=== PATIENT | male | born 1980 | race Caucasian/White ===

== ENCOUNTER 2016-09-19 21:37 | Emergency (ER) | payer OTHER ==
[~2016-09-19] VITALS: Ht 160 cm; Wt 55.0 kg
[2016-09-19 21:50] VITALS: TEMP 36.5; Ht 160 cm; Wt 55.0 kg
[2016-09-19 21:57] VITALS: O2SAT 97
[2016-09-19] MEDS ORDERED: SODIUM CHLORIDE 0.9% 1000ML 1,000 ML IV STA ×2 (22:14)
[2016-09-19] MEDS ORDERED: MULTI-VITAMIN INFUSION INJ 10 ML, THIAMINE HCL INJ 100 MG, FoLIC ACID INJ 1 MG in SODIU... IV ONE (22:15)
[2016-09-19] MEDS ORDERED: OPTIRAY 320 IV PRN (22:30)
--- NOTE | 2016-09-19 22:43 | DIAGNOSTIC IMAGING REPORT ---
CHEST ONE VIEW PORTABLE CLINICAL HISTORY: CHEST PAIN dyspnea COMPARISON STUDY: 01/22/2016 FINDINGS: The bones soft tissues and hemidiaphragms are normal. The cardiomediastinal silhouette is normal. The lungs are clear. The pulmonary vasculature is normal. IMPRESSION: Negative chest. Electronically signed by: Jacinto Willard M.D. 09/19/2016 10:42 PM Dictated Date/Time: 09/19/2016 10:42 PM
[2016-09-19 23:01] LABS: ALT/SGPT 73 U/L (12-78); BLOOD UREA NITROGEN 5 mg/dl (7-18); BUN/CREATININE RATIO 7.5 (10-20); CALCIUM 8.2 mg/dl (8.5-10.1); CARBON DIOXIDE 21 mmol/L (21-32); CHLORIDE 113 mmol/L (98-107); CREATININE 0.69 mg/dl (0.60-1.40); GLUCOSE 107 mg/dl (70-99); MAGNESIUM 2.4 mg/dl (1.8-2.4); POTASSIUM 3.6 mmol/L (3.5-5.1); SODIUM 148 mmol/L (136-145)
[2016-09-19 23:03] LABS: ISTAT CREATININE 0.9 mg/dl (0.6-1.3); ISTAT HEMOGLOBIN 16.3 g/dl (14.0-18.0); ISTAT IONIZED CALCIUM 1.04 mmol/l (1.12-1.32)
[2016-09-19 23:10] LABS: ALKALINE PHOSPHATASE 84 U/L (45-117); AST/SGOT 51 U/L (15-37); CKMB/CK RATIO 0.5 (0-3.0)
[2016-09-19 23:13] LABS: HEMATOCRIT 44.4 % (42-52); MEAN CELL VOLUME 93.3 fL (80-100); MEAN CORPUSCULAR HGB CONC 36.5 g/dl (32-36); MEAN PLATELET VOLUME 9.6 fL (7.4-10.4); PLATELET COUNT 309 K/uL (130-400); RED BLOOD COUNT 4.76 M/uL (4.7-6.1); WHITE BLOOD COUNT 9.52 K/uL (4.8-10.8)
[2016-09-19] MEDS ORDERED: DPKEC250 PO (23:41)
[2016-09-19] MEDS ORDERED: VLT/75 PO (23:44)
[2016-09-20 00:45] VITALS: BP 128/105; PULSE 60; O2SAT 99
[2016-09-20 01:07] LABS: BASO % 0.3 %; BASO ABS # 0.03 K/uL (0-0.2); COMPLETE YES; EOS % 3.4 %; IG% 0.2 %; LYMPH % 58.3 %; LYMPH ABS # 5.55 K/uL (1.2-3.4); MONO % 6.3 %; NEUT % 31.5 %
[2016-09-20 01:11] LABS: BENZODIAZEPINE, URINE NEG (NEG); COCAINE,URINE NEG (NEG); PHENCYCLIDINE, URINE NEG (NEG)
--- NOTE | 2016-09-20 04:28 | EMERGENCY ROOM VISIT NOTE ---
History First contact with patient: 22:11 Chief Complaint: FALL Stated Complaint: FALL/ HEAD, CHEST PAIN & FACIAL ABRASIONS History of Present Illness The patient is a 36 year old male who presents to the Emergency Room with complaints of slipping and falling down 9 steps tonight. This happened at 8:30 PM and the girlfriend heard him and went outside. He had brief loss of consciousness despite the triage note stated. This is verified twice with him and the girlfriend. Patient states he had 1 40 bottle of beer today. No other alcohol. He smoked marijuana yesterday. He denies any other drug use today. He states he has not missed any doses of his Depakote. He follows with Dr. Brandon from neurology in the [facility] system. Patient complains of head injury , neck pain, chest pain, abdominal pain. He describes the pain as aching, ranging in severity 6 out of 10. Nothing makes it better or worse. No recent seizure. Patient denies leg pain, arm pain, dental pain, numbness, tingling. Review of Systems See HPI for pertinent positives & negatives. A total of 10 systems reviewed and were otherwise negative. Past Medical/Surgical History Seizures, alcohol abuse Social History Smoking Status: Current Every Day Smoker Alcohol Use: heavy Drug Use: marijuana Marital Status: in relationship Occupation Status: employed Current/Historical Medications Scheduled Diclofenac Sod (Diclofenac Sodium Dr), 75 MG PO BID Divalproex Sodium (Divalproex Sodium Dr), 500 MG PO Q12 Allergies Coded Allergies: No Known Allergies (Unverified , 01/22/16) Physical Exam Vital Signs Date Time Temp Pulse Resp B/P Pulse Ox O2 Delivery O2 Flow Rate FiO2 09/20/16 00:45 60 16 128/105 99 Room Air 09/19/16 23:24 81 18 98/76 95 Room Air 09/19/16 21:57 97 Room Air 09/19/16 21:50 36.5 88 16 112/66 97 09/19/16 21:48 82 Pain Rating (0-10): 5.0 Physical Exam PHYSICAL EXAM: VITALS: Vitals are noted on the nurse's note and reviewed by myself. Vital signs stable. GENERAL: White male with EtOH and tobacco odor, in no acute distress, nondiaphoretic, well-developed well-nourished. SKIN: The skin was without obvious lacerations or abrasions. Capillary reflex less than 2 seconds. HEAD: Normocephalic atraumatic. EARS: External auditory canals clear, tympanic membranes pearly steven without erythema or effusion bilaterally. No hemotympanums. No gonzalez sign. No mastoid tenderness. EYES: Pupils equal round and reactive to light and accommodation. Conjunctivae with injection, sclerae without icterus. Extraocular movements intact. NOSE: Patent, turbinates without inflammation or discharge. No sinus tenderness. No septal hematoma or bleeding. FACE: No facial bone tenderness. Full range of motion of the jaw without tenderness. MOUTH: Mucous membranes moist. Pharynx without erythema or exudate. Uvula midline. Airway patent. Tongue does not deviate. NECK: Supple without nuchal rigidity. Cervical spine is nontender. Full range of motion of the neck without tenderness. No JVD. HEART: Regular rate and rhythm without murmurs gallops or rubs. LUNGS: Clear to auscultation bilaterally without wheezes, rales or rhonchi. No dullness to percussion. No retractions or accessory muscle use. Left-sided chest wall tenderness. ABDOMEN: Positive bowel sounds x 4. Normal tympanic percussion. Soft, tender to palpation left side of abdomen, no CVA tenderness, without masses or organomegaly. No guarding or rebound tenderness. MUSCULOSKELETAL: Minimal diffuse thoracic and lumbar spine tenderness with no step-offs or bruising appreciated. No tenderness with pelvic rocking. Full range of motion without tenderness to palpation in all extremities. Normal gait. Strength 5/5 throughout. Peripheral pulses 2+. NEURO: Patient was alert and oriented to person place and time. Normal sensation to light and sharp touch. No focal neurological deficits. Medical Decision & Procedures Laboratory Results 09/19/16 21:45 Red Blood Count 4.76, Mean Corpuscular Volume 93.3, Mean Corpuscular Hemoglobin 34.0, Mean Corpuscular Hemoglobin Concent 36.5, Mean Platelet Volume 9.6, Neutrophils (%) (Auto) 31.5, Lymphocytes (%) (Auto) 58.3, Monocytes (%) (Auto) 6.3, Eosinophils (%) (Auto) 3.4, Basophils (%) (Auto) 0.3, Neutrophils # (Auto) 3.00, Lymphocytes # (Auto) 5.55, Monocytes # (Auto) 0.60, Eosinophils # (Auto) 0.32, Basophils # (Auto) 0.03 09/19/16 21:45 Test 09/19/16 21:45 09/19/16 22:36 09/19/16 23:30 09/20/16 00:15 White Blood Count 9.52 K/uL (4.8-10.8) Red Blood Count 4.76 M/uL (4.7-6.1) Hemoglobin 16.2 g/dL (14.0-18.0) Hematocrit 44.4 % (42-52) Mean Corpuscular Volume 93.3 fL (80-100) Mean Corpuscular Hemoglobin 34.0 pg (25-34) Mean Corpuscular Hemoglobin Concent 36.5 g/dl (32-36) Platelet Count 309 K/uL (130-400) Mean Platelet Volume 9.6 fL (7.4-10.4) Neutrophils (%) (Auto) 31.5 % Lymphocytes (%) (Auto) 58.3 % Monocytes (%) (Auto) 6.3 % Eosinophils (%) (Auto) 3.4 % Basophils (%) (Auto) 0.3 % Neutrophils # (Auto) 3.00 K/uL (1.4-6.5) Lymphocytes # (Auto) 5.55 K/uL (1.2-3.4) Monocytes # (Auto) 0.60 K/uL (0.11-0.59) Eosinophils # (Auto) 0.32 K/uL (0-0.5) Basophils # (Auto) 0.03 K/uL (0-0.2) RDW Standard Deviation 42.7 fL (36.4-46.3) RDW Coefficient of Variation 12.6 % (11.5-14.5) Immature Granulocyte % (Auto) 0.2 % Immature Granulocyte # (Auto) 0.02 K/uL (0.00-0.02) Est Creatinine Clear Calc Drug Dose 117.4 ml/min Estimated GFR () 143.6 Estimated GFR (Non- 123.9 BUN/Creatinine Ratio 7.5 (10-20) Calcium Level 8.2 mg/dl (8.5-10.1) Magnesium Level 2.4 mg/dl (1.8-2.4) Total Bilirubin 0.2 mg/dl (0.2-1) Direct Bilirubin < 0.1 mg/dl (0-0.2) Aspartate Amino Transf (AST/SGOT) 51 U/L (15-37) Alanine Aminotransferase (ALT/SGPT) 73 U/L (12-78) Alkaline Phosphatase 84 U/L (45-117) Total Creatine Kinase 165 U/L (39-308) Creatine Kinase MB 0.9 ng/ml (0.5-3.6) Creatine Kinase MB Ratio 0.5 (0-3.0) Troponin I < 0.015 ng/ml (0-0.045) Total Protein 8.0 gm/dl (6.4-8.2) Albumin 4.0 gm/dl (3.4-5.0) Lipase 156 U/L (73-393) Thyroid Stimulating Hormone (TSH) 1.320 uIu/ml (0.300-4.500) Chemistry Specimen Hemolysis Valproic Acid (Depakene) Level 10 mcg/ml (50-100) Bedside Hemoglobin 16.3 g/dl (14.0-18.0) Bedside Hematocrit 48 % (42-52) Bedside Sodium 148 mEq/L (135-144) Bedside Potassium 3.8 mEq/L (3.3-5.0) Bedside Chloride 110 mEq/L (101-112) Bedside Total CO2 22 mEq/l (24-31) Anion Gap 21.0 mmol/L (16-25) Bedside Blood Urea Nitrogen 4 mg/dl (7-18) Bedside Creatinine 0.9 mg/dl (0.6-1.3) Bedside Glucose (other) 100 mg/dl (70-99) Bedside Ionized Calcium (Cha) 1.04 mmol/l (1.12-1.32) Ethyl Alcohol mg/dL 275.0 mg/dl (0-3) Urine Opiates Screen NEG (NEG) Urine Methadone, Qualitative NEG (NEG) Urine Barbiturates NEG (NEG) Urine Phencyclidine (PCP) Level NEG (NEG) Ur Amphetamine/Methamphetamine NEG (NEG) MDMA (Ecstasy) Screen NEG (NEG) Urine Benzodiazepines Screen NEG (NEG) Urine Cocaine Metabolite NEG (NEG) Urine Marijuana (THC) POS (NEG) Medications Administered Medications (Trade) Dose Ordered Sig/Kenneth Route Start Time Stop Time Status Last Admin Dose Admin Multivitamins 10 ml/Thiamine HCl 100 mg/Folic Acid 1 mg/Sodium Chloride 1,011.2 ml @ 150 mls/ hr Q6H45M ONCE IV 09/19/16 22:15 09/20/16 02:16 DC 09/19/16 23:12 150 MLS/HR Sodium Chloride 1,000 ml @ 999 mls/hr Q1H1M STAT IV 09/19/16 22:14 09/19/16 23:14 DC 09/19/16 22:40 999 MLS/HR Sodium Chloride (Nss 1000ml) 1,000 ml @ 125 mls/hr Q8H STAT IV 09/19/16 22:14 09/20/16 02:16 DC 09/19/16 22:14 125 MLS/HR ED Course Prior records/ancillary studies reviewed. Triage Nursing notes reviewed. Additional history obtained from girlfriend. The patient's history was concerning for traumatic injury Differential diagnosis: Etiologies such as fracture, dislocation, intra-abdominal, pneumothorax, intrathoracic , intracranial, neurologic, as well as other traumatic pathologies were entertained. Physical examination findings: As above. The patients vitals were stable. ER treatment provided: IV Normal Saline hydration, 1000 mL. Banana bag On reassessment the patient felt better. Vital signs were stable. Diagnostic interpretation by me: A 12 lead ECG revealed no emergent pathology. Normal sinus, normal intervals, no acute ST-T wave changes. Impression normal sinus rhythm interpreted by myself The labs revealed positive marijuana. Elevated alcohol. Subtherapeutic Depakote level. Imaging studies: CTs of the head, face, chest, back were reviewed and read by stat radiology with no acute fracture or intrathoracic injury CT ABDOMEN & PELVIS: No free air. No free fluid. No evidence of solid organ injury. Hepatic steatosis. Nonspecific small mesenteric lymph nodes with additional celiac axis/ gastrohepatic ligament nodes. No spinal, pelvic or femoral neck fractures. Degenerative grade 1 anterolisthesis L5 on S1 with superimposed mild spondylosis. Radiologist: Jame Rodrigues M.D. Study ready at 23:23 and initial results transmitted This appears to be consistent with fall with multiple injuries that were muscle skeletal in nature. Patient was intoxicated. He was positive marijuana screen. He is a known alcoholic. Him and his family strongly encouraged to quit drinking and to follow-up with neurology in a few days or here in the ER sooner for seizures, pain, fevers, worsening signs or symptoms or as needed. Patient was demanding to leave and the girlfriend felt comfortable caring for him at home. He was strongly encouraged to abstain from alcohol. Patient unremarkable CT scans as above. No recent seizures. I am unsure of reason taken his Depakote since he is a known alcoholic. By the evaluation outlined above emergent etiologies such as fracture, dislocation, intra-abdominal, pneumothorax, pulmonary contusion, hemothorax, intracranial, neurologic,as well as others were deemed relatively unlikely. The pt informed about the findings as listed above. All questions were answered and pleased with the treatment. Return instructions were outlined and the patient was discharged in stable condition. Referral: The patient was referred to family doctor and neurology for follow-up in 2 to 3 days for a recheck of the current condition. Case reviewed with my attending. Medical Decision As above Impression Primary Impression: Paranasal sinus disease Additional Impressions: Alcohol abuse Head injury Fall subtherapeutic Depakote level Departure Information Dispostion Home / Self-Care Condition GOOD Referrals Sonya Sherman M.D. Forms HOME CARE DOCUMENTATION FORM, IMPORTANT VISIT INFORMATION Patient Instructions Alcohol Abuse - [facility], [facility], ED Head Injury Closed Additional Instructions Your Depakote level is low. Please contact your neurologist and taking her Depakote as directed. Call them in the morning. Your alcohol is extremely high. Recommend that you quit drinking alcohol. See ENT for your chronic sinus disease. Read head injury handout and return for any symptoms. Tylenol 1000 mg as needed for pain (Maximum 3000 mg Tylenol in 24 hr period). Avoid alcohol and contact sports/activities for one week and follow up with family doctor prior to returning to these activities if still symptomatic. Ice and elevate head. Follow-up family care in one to 2 days. Call for an appointment. Return to ER sooner for headache, fevers, confusion, seizures, worsening signs or symptoms or as needed. Problem Qualifiers
--- NOTE | 2016-09-20 06:49 | DIAGNOSTIC IMAGING REPORT ---
CT OF THE HEAD WITHOUT CONTRAST CLINICAL HISTORY: Fall. Headache. Loss of consciousness. COMPARISON STUDY: Head CT January 22, 2016. TECHNIQUE: Helical axial images of the head were obtained without IV contrast. Automated exposure control was utilized for the study. FINDINGS: No acute intracranial hemorrhage, midline shift or mass effect is present. Ventricular system is normal. Basilar cisterns are patent. There are no extra-axial collections. Covarrubias-white differentiation is maintained. There is no calvarial fracture. There is mild mucosal thickening of the ethmoid sinuses. IMPRESSION: 1. No acute intracranial findings. 2. No calvarial fracture. Electronically signed by: Rocco Ramírez M.D. 09/20/2016 6:48 AM Dictated Date/Time: 09/20/2016 6:45 AM
--- NOTE | 2016-09-20 07:01 | DIAGNOSTIC IMAGING REPORT ---
CT OF THE CHEST WITH IV CONTRAST CLINICAL HISTORY: Fall. Chest and back pain. COMPARISON STUDY: Chest radiograph January 22, 2016 and September 19, 2016. TECHNIQUE: Following IV administration of 116 mL of Optiray-320, helical axial images of the chest were obtained. Images were viewed in the axial, sagittal and coronal planes. IV contrast was administered without complication. FINDINGS: There is no evidence of traumatic injury to the thoracic aorta. The size of the heart is normal. There is no pericardial effusion. No enlarged thoracic lymph nodes are present. The central airways are patent. Dependent airspace opacities represent atelectasis. There is no pneumothorax or pulmonary contusion. There is a 0.6 cm hypodense left lobe thyroid nodule. No acute rib or thoracic spine fracture is identified. The abdomen and pelvis will be reported separately. IMPRESSION: No acute traumatic findings within the chest. Electronically signed by: Rocco Ramírez M.D. 09/20/2016 6:59 AM Dictated Date/Time: 09/20/2016 6:48 AM
--- NOTE | 2016-09-20 07:03 | DIAGNOSTIC IMAGING REPORT ---
CT THORACIC SPINE CLINICAL HISTORY: Back pain following fall. TECHNIQUE: Axial images of the thoracic spine were obtained. Sagittal and coronal reconstructions were viewed. COMPARISON STUDY: None. FINDINGS: Chronic deformity of the left scapula is noted. Alignment of the thoracic spine is anatomic. Vertebral body heights are maintained. No acute fracture is identified within the thoracic spine. Slight concavity with the superior endplates of several upper thoracic vertebral bodies is likely chronic. No fracture line is identified. There is no prevertebral edema. IMPRESSION: No acute thoracic spine fracture or subluxation. Electronically signed by: Rocco Ramírez M.D. 09/20/2016 7:01 AM Dictated Date/Time: 09/20/2016 6:59 AM
--- NOTE | 2016-09-20 07:17 | DIAGNOSTIC IMAGING REPORT ---
CT SCAN OF THE CERVICAL SPINE CLINICAL HISTORY: Fall down stairs. COMPARISON STUDY: No priors. TECHNIQUE: CT scan of the cervical spine is performed from the skull base to the upper thoracic spine. Images are reviewed in the axial, sagittal, and coronal planes. IV contrast was not administered for this examination. CT DOSE: 2042.67 mGy.cm FINDINGS: Skeletal structures: The skeletal structures are well mineralized. There is no evidence of fracture or subluxation involving the cervical spine. Vertebral body height and alignment are maintained. The odontoid process and lateral masses are intact. The atlantoaxial articulation is preserved. The spinous processes appear intact. Mild endplate sclerosis is seen at C3-C4. Intervertebral discs: The disc spaces are well maintained. Central canal: The central canal appears patent. A posterior disc osteophyte complex is seen eccentric to the right at C3-C4. Soft tissues: The prevertebral and paraspinous soft tissues are within normal limits. Calvarium: The visualized calvarium at the skull base appears intact. Brain parenchyma: Partially visualized brain parenchyma the skull base is within normal limits. Sinuses and mastoids: The visualized paranasal sinuses are clear. The mastoid air cells are well pneumatized. Lung apices: Clear as visualized. IMPRESSION: There is no evidence of fracture or subluxation involving the cervical spine. Electronically signed by: Jay Springer M.D. 09/20/2016 7:15 AM Dictated Date/Time: 09/20/2016 7:13 AM
--- NOTE | 2016-09-20 07:51 | DIAGNOSTIC IMAGING REPORT ---
CT SCAN OF LUMBAR SPINE WITHOUT IV CONTRAST CLINICAL HISTORY: Fall down stairs. COMPARISON STUDY: No priors. TECHNIQUE: CT scan of lumbar spine is performed from the lower thoracic spine to the sacrum. Images are reviewed in the axial, sagittal, and coronal planes. IV contrast was not administered specifically for this examination. There is IV contrast present from the concurrently performed CT scan of the abdomen and pelvis. FINDINGS: The skeletal structures are well mineralized. There is no evidence of fracture or malalignment. Vertebral body height and alignment are maintained throughout the lumbar spine. No lytic or blastic lesions are seen. The transverse and spinous processes appear intact. There is minimal degenerative disc space narrowing at L5-S1. The remaining disc spaces are preserved. There is no evidence of large disc herniation. The central canal appears clear. Tiny anterior osteophytes are noted in the lower lumbar region. The sacrum and bony pelvis are intact as visualized. The paraspinous soft tissues are within normal limits. The partially imaged retroperitoneal structures are grossly normal. See report of abdominal CT scan performed concurrently for detailed intra-abdominal findings. IMPRESSION: There is no evidence of fracture or malalignment involving the lumbar spine. Electronically signed by: Jay Springer M.D. 09/20/2016 7:50 AM Dictated Date/Time: 09/20/2016 7:47 AM
--- NOTE | 2016-09-20 07:57 | DIAGNOSTIC IMAGING REPORT ---
CT SCAN OF THE ABDOMEN AND PELVIS WITH IV CONTRAST CLINICAL HISTORY: Trauma. Intoxication. Fall down stairs. COMPARISON STUDY: No priors. TECHNIQUE: Following the IV administration of 116 cc of Optiray 320, CT scan of the abdomen and pelvis is performed from the lung bases to the proximal femora. Images are reviewed in the axial, sagittal, and coronal planes. IV contrast was administered without complication. Automated dose control exposure was utilized. FINDINGS: Lung bases: The heart is normal in size and without pericardial effusion. The lung bases are clear fatty sparing is seen adjacent to gallbladder fossa. Noting dependent atelectasis. Liver: The contrast-enhanced liver is enlarged and demonstrates diffusely diminished attenuation consistent with hepatic steatosis. There is no intrahepatic biliary ductal dilatation. The hepatic veins and portal veins are patent. Gallbladder: Unremarkable. Spleen: Normal in size and attenuation. Pancreas: Unremarkable. Adrenal glands: Unremarkable. Kidneys: The contrast enhanced kidneys are normal in size and without hydronephrosis. The kidneys enhance symmetrically. Abdominal vasculature: The abdominal aorta is normal in course and caliber. Bowel: The small bowel and colon are normal in course and caliber. The appendix is well-visualized and normal. Peritoneum: There is no intraperitoneal free air or abdominal ascites. Lymphadenopathy: Prominent gastrohepatic nodes measure up to 1.2 cm in short axis. Scattered subcentimeter mesenteric nodes are also noted.. Pelvic viscera: The bladder, prostate, and seminal vesicles are normal as visualized. Skeletal structures: No fracture is identified. No lytic or blastic lesions are seen. IMPRESSION: 1. There is no evidence of solid organ injury in the abdomen or pelvis. 2. No fracture is seen. 3. Hepatomegaly and severe hepatic steatosis. Electronically signed by: Jay Springer M.D. 09/20/2016 7:56 AM Dictated Date/Time: 09/20/2016 7:52 AM
== END 2016-09-20 00:48 | disposition home or self-care (01) ==
LOC: EDBD 21:37 → C.EDC 21:40
DX: J32.9 Chronic sinusitis, unspecified (principal); S09.90XA Unspecified injury of head, initial encounter; W10.9XXA Fall (on) (from) unspecified stairs and steps, initial encounter; Y92.009 Unspecified place in unspecified non-institutional (private) residence as the place of occurrence of the external cause; Z51.81 Encounter for therapeutic drug level monitoring; F10.10 Alcohol abuse, uncomplicated; F17.210 Nicotine dependence, cigarettes, uncomplicated; F12.10 Cannabis abuse, uncomplicated

== ENCOUNTER → 2016-10-08 | Outpatient (CLI) | payer OTHER ==
[~2016-10-08] MED LIST: DPKEC250 PO; VLT/75 PO
--- NOTE | 2016-10-19 16:35 | EEG Procedure Note ---
EEG Procedure Note Date of Service Oct 08, 2016. Start / End Times Start Time: 10/08/16 @ 1:44pm End Time: 10/10/16 @ 1:25pm Referring Physician ATIF Chaudhary History 36 year old male with seizure like episodes. 48hr ambulatory EEG for further evaluation of seizures. Home Medication List Scheduled Diclofenac Sod (Diclofenac Sodium Dr), 75 MG PO BID Divalproex Sodium (Divalproex Sodium Dr), 500 MG PO Q12 Description This is a 21 electrode ambulatory EEG with a single channel dedicated to limited EKG. The electrodes were placed in accordance with the International 10- 20 system. There was Fp1 & Fp2 disconnection artifact after 12:30am on October 09 limiting read of this EEG in the bifrontal polar areas after that time. At the start of the recording the patient was in an awake state. The background was well organized and composed of symmetric mixed alpha and beta frequencies. There was a well formed symmetric moderate amplitude posterior dominant rhythm of 9Hz that was reactive to eye opening and closure. Sleep was indicated by vertex waves and symmetric sleep spindles. Patient journal was returned and reviewed. There was no clinical events reported. Interpretation This is a normal 48hr Ambulatory EEG There was no electrographic seizures or epileptiform discharges. Clinical Correlation A normal EEG does not rule out epilepsy if there is a strong clinical suspicion or for clinical events not captured.
== END | disposition home or self-care (01) ==
LOC: C.NEUR 13:15
PROVIDERS: ATTEND Nurse Practitioner Adult Health
DX: R56.9 Unspecified convulsions (principal)

== ENCOUNTER 2017-12-04 11:02 | Emergency (ER) | payer OTHER ==
[~2017-12-04] VITALS: Ht 167.6 cm; Wt 63.6 kg
[2017-12-04 11:19] VITALS: TEMP 36.9; Ht 167.6 cm; Wt 63.6 kg
[2017-12-04] MEDS ORDERED: PROPARACAINE HCL 0.5% OP SOLN 15 ML BTL OP STA (11:49)
--- NOTE | 2017-12-04 13:38 | EMERGENCY ROOM VISIT NOTE ---
History First contact with patient: 11:28 Chief Complaint: EYE PAIN Stated Complaint: EYE History of Present Illness The patient is a 37 year old male who presents to the Emergency Room via private vehicle with complaints of "eye pain". The patient states that last José Miguel he was doing yard work and believes he got something into his left eye. There is been redness, tearing, eye pain. No drainage. He wears glasses, and has had blurred vision in the left eye. He was flushing the eye with water and drops without relief. It persists. Tetanus not up-to-date. He denies any recent metal work. No grinding or pounding of metal. Review of Systems A complete 6-point Review of Systems was discussed with the patient, with pertinent positives and negatives listed in the History of Present Illness. All remaining Review of Systems questions can be considered negative unless otherwise specified. Past Medical/Surgical History No pertinent. Family History No pertinent. Social History Smoking Status: Current Every Day Smoker Alcohol Use: heavy Drug Use: marijuana Marital Status: in relationship Occupation Status: employed Current/Historical Medications Scheduled Diclofenac Sod (Diclofenac Sodium Dr), 75 MG PO BID Divalproex Sodium (Divalproex Sodium Dr), 500 MG PO Q12 Physical Exam Vital Signs Date Time Temp Pulse Resp B/P (MAP) Pulse Ox O2 Delivery O2 Flow Rate FiO2 12/04/17 13:46 51 17 118/54 98 Room Air 12/04/17 11:19 36.9 64 18 137/83 98 Room Air Right Eye Acuity: 20/25 with glasses Left Eye Acuity: 20/40 with glasses Physical Exam VITAL SIGNS - Vital signs and nursing notes were reviewed. Stable. GENERAL - 37-year-old male appearing his stated age who is in no acute distress. Communicates well with provider and answers questions appropriately. SKIN - Without rashes. No meningeal or petechial rash. No rash around the left eye. EYES - PERRL with EOMI bilaterally. Sclera normal without noticeable foreign body or excoriations. No injection noted in the left eye. Without subconjunctival hemorrhage. Brief fundoscopic exam demonstrates no AV-nicking, cotton wool spots, or flame hemorrhages. Slit lamp examination performed as further described. Slit Lamp Examination was performed of the left eye(s). Alcaine drops were applied to the affected eye(s) for proper anesthetization. The affected eye(s) were stained with Fluorescein stain to precipitate adequate visualization of any conjunctival/scleral excoriations or ulcers. The patient's face was comfortably rested on the chin guard of the slit lamp apparatus. The lights were dimmed and the affected eye(s) were thoroughly examined under microscopy using the blue light. Minimal central and punctate uptake was present at the 11 o'clock position the patient's I representing a foreign body. Additionally, the eye(s) were examined under microscopy using the regular light. Close examination revealed small foreign body. Negative Lavonne sign. Patient tolerated the procedure well and no complications were met. Medical Decision & Procedures Medications Administered Medications (Trade) Dose Ordered Sig/Kenneth Route Start Time Stop Time Status Last Admin Dose Admin Proparacaine HCl (Alcaine 0.5% Oph Soln) 2 drops NOW STAT OP 12/04/17 11:49 12/04/17 11:50 DC 12/04/17 11:55 2 DROPS Medical Decision Patient was seen and evaluated as above in room D9. Review was performed of nursing notes and vital signs. After obtaining a thorough history and physical examination the above work up was performed. He presents to us today with a foreign body in left eye. Tetanus booster was ordered. I did speak with our on -call commercial announcer as the patient has had a foreign body now for about 6 days in the left eye and I believe that removal would be best done by an commercial announcer. I spoke with Dr. Cash. He instructed me to send the patient directly over to his office for removal. Patient was in agreement. He was discharged to go directly to his office. The patient was educated upon management, had questions answered prior to discharge, and was discharged home in good condition. In the evaluation and treatment of this patient, the following differential diagnoses were considered: Corneal Abrasion, Conjunctivitis, Eye Contusion, Globe Injury, Orbital Floor Injury (Blowout Fracture), Corneal Ulcer, Keratitis , Herpes Zoster Opthalmic, Blepharitis, Orbital Cellulitis, Iritis, Scleritis/ Episcleritis, Uveitis, Temporal Arteritis, Subconjunctival Hemorrhage. Of additional note, after the patient was discharged and I was completing the chart it was brought to my attention that the Adacel was not able to be given as he was discharged prior to the order showing up in the electronic medical record. I did personally call the patient on December 05, 2017 at 1:20 PM. He was doing much better. I informed him that he is to follow with the family doctor to receive this. Given that he has had the foreign body for a number of days and it was removed and he has had no trouble I do not believe that emergently having him return for this is necessary, rather follow-up with the family doctor I believe is appropriate on his scheduled follow-up in just over a week. Impression Primary Impression: Corneal FB (foreign body) Departure Information Dispostion Home / Self-Care Condition GOOD Referrals Radha Tadeo M.D. (MEDICAL) (PCP) Adalid Cash D.O. Patient Instructions [facility] Additional Instructions You have been treated in the Emergency Department for something in your left eye but will need to be removed by the commercial announcer. He requests that you go directly to his office. This is Dr. Cash. Please call here at [phone] if you have difficulty finding his office. Please return with any new/concerning symptoms. For pain you may use ibuprofen/Tylenol according to the package directions.
[2017-12-04] MEDS ORDERED: DIPHTHERIA/TETANUS/PERTUSSIS 0.5 ML SYR/VIAL IM. ONE (13:45)
[2017-12-04 13:46] VITALS: BP 118/54; PULSE 51; O2SAT 98
== END 2017-12-04 13:48 | disposition home or self-care (01) ==
LOC: C.EDB 11:03 → C.EDD 13:48
DX: T15.02XA Foreign body in cornea, left eye, initial encounter (principal); X58.XXXA Exposure to other specified factors, initial encounter; Y92.017 Garden or yard in single-family (private) house as the place of occurrence of the external cause; F17.210 Nicotine dependence, cigarettes, uncomplicated

== ENCOUNTER 2017-12-21 22:10 | Emergency (ER) | payer OTHER ==
[~2017-12-21] VITALS: Ht 170.2 cm; Wt 60.0 kg
[~2017-12-21 22:10] MED LIST changes: -DPKEC250 PO
[2017-12-21 22:23] VITALS: TEMP 36.6; Ht 170.2 cm; Wt 60.0 kg
[2017-12-21] MEDS ORDERED: MoRPHine SULFATE 4 MG/ML 1 ML CARP\\VIAL IV STA (22:41)
[2017-12-21] MEDS ORDERED: ONDANSETRON INJ 2 MG/ML 2 ML VIAL IV STA (22:41)
[2017-12-21 23:08] LABS: HEMATOCRIT 43.5 % (42-52); MEAN CELL VOLUME 94.4 fL (80-100); MEAN CORPUSCULAR HEMOGLOBIN 34.7 pg (25-34); MEAN CORPUSCULAR HGB CONC 36.8 g/dl (32-36); MEAN PLATELET VOLUME 9.9 fL (7.4-10.4); PLATELET COUNT 219 K/uL (130-400); RED CELL DISTRIBUTION WIDTH CV 12.5 % (11.5-14.5); RED CELL DISTRIBUTION WIDTH SD 42.8 fL (36.4-46.3); WHITE BLOOD COUNT 8.83 K/uL (4.8-10.8)
[2017-12-21 23:17] LABS: INR 0.9 (0.9-1.1); PTT PATIENT 27.9 SECONDS (21.0-31.0)
[2017-12-21 23:30] LABS: ALBUMIN 3.8 gm/dl (3.4-5.0); CALCIUM 8.1 mg/dl (8.5-10.1); CREATININE 0.94 mg/dl (0.60-1.40); POTASSIUM 3.4 mmol/L (3.5-5.1)
[2017-12-21 23:33] LABS: BASO % 0.5 %; BASO ABS # 0.04 K/uL (0-0.2); EOS % 4.3 %; EOS ABS # 0.38 K/uL (0-0.5); IG# 0.01 K/uL (0.00-0.02); LYMPH % 50.3 %; LYMPH ABS # 4.44 K/uL (1.2-3.4); MONO ABS # 0.88 K/uL (0.11-0.59); NEUT % 34.8 %; NEUT ABS # 3.08 K/uL (1.4-6.5)
[2017-12-21] MEDS ORDERED: DPKEC250 PO (23:41)
[2017-12-21] MEDS ORDERED: VALPROATE SOD IV 500 MG in DEXTROSE 5% 50ML 50 ML IV STA (23:41)
[2017-12-21] MEDS ORDERED: SODIUM CHLORIDE 0.9% 1000ML 1,000 ML IV STA (23:44)
[2017-12-21 23:50] VITALS: O2SAT 96
[2017-12-22 01:30] VITALS: BP 101/74; PULSE 65; O2SAT 95
--- NOTE | 2017-12-22 01:42 | EMERGENCY ROOM VISIT NOTE ---
History Report prepared by Zaheer: Sheila March Under the Supervision of: Dr. Severino Fulton M.D. First contact with patient: 22:32 Chief Complaint: SEIZURE Stated Complaint: SEIZURE EARLIER TODAY,TROUBLE WALKING NOW History of Present Illness The patient is a 37 year old male who presents to the Emergency Room with complaints of an episode of seizure around 1 hour ago. The patient was laying in bed when he had the seizure. He felt the seizure coming on. He was shaking all over for 4-5 minutes. He did not fall or hit his head. The seizure was witnessed by his family. His family states that he seemed confused afterwards. He has had numbness from the legs down since the seizure. He has some mild lower back pain. He is nauseous. His legs are sore. His arms are not sore. He has some sore throat. He denies any incontinence, fever, vomiting, or diarrhea. The patient has a history of seizures and is on Depakote. His last dose was at 1500. He denies any missed doses. His last seizure was 2 weeks ago. He denies any alcohol or drug use. He denies any recent head injury or illness. Source of History: patient, family Onset: 1 hour ago Position: other (diffuse) Quality: other (seizure) Timing: other (episodic) Associated Symptoms: + sorethroat, + nausea, + back pain, + numbness, No fevers, No vomiting, No diarrhea Note: Pt reports legs are sore. Review of Systems See HPI for pertinent positives & negatives. A total of 10 systems reviewed and were otherwise negative. Past Medical & Surgical Medical Problems: (1) Seizure Family History Cancer Diabetes mellitus Heart disease Hypertension Kidney stones Lung disease Seizures Social History Smoking Status: Current Every Day Smoker Occupation Status: unemployed Current/Historical Medications Scheduled Divalproex Sodium (Divalproex Sodium Dr), 500 MG PO Q12 Allergies Coded Allergies: No Known Allergies (Unverified , 12/04/17) Physical Exam Vital Signs Date Time Temp Pulse Resp B/P (MAP) Pulse Ox O2 Delivery O2 Flow Rate FiO2 12/22/17 01:30 65 19 101/74 95 12/22/17 00:45 88 18 92 Room Air 12/22/17 00:01 106/76 12/21/17 23:53 61 12/21/17 23:50 96 Room Air 12/21/17 23:45 69 12 96 Room Air 12/21/17 23:40 65 12 96 Room Air 12/21/17 23:31 120/90 12/21/17 22:23 36.6 68 18 130/82 96 Room Air Physical Exam Constitutional: Vital signs reviewed. Eyes: Pupils are equal round reactive to light. Conjunctiva are noninjected. ENT: Pharynx is clear without erythema or exudate. Mucous membranes are moist. Neck supple without meningeal signs. Respiratory: Clear to auscultation bilaterally. Breath sounds are equal bilaterally. Cardiovascular: Regular rate and rhythm. No rubs or gallops. GI: Soft, nondistended and nontender. Bowel sounds are present. Musculoskeletal: No peripheral edema. No lower extremity tenderness. Midline tenderness to the lumbar spine. No step-off or deformity. Integumentary: No cyanosis. Neurological: The patient is awake and alert. Cranial nerves II-XII are intact. Motor is 5 out of 5 all extremities. Patient is numb from his upper thighs down. Normal sensation in the upper extremities and trunk. No saddle anesthesia. Normal speech. No pronator drift. Psychiatric: Normal affect. Medical Decision & Procedures ER Provider Diagnostic Interpretation: Radiology results as stated below per my review and the [facility] radiologist's interpretation: CT Head: No ICH, mass effect, or edema. No evidence of acute cortical stroke. Visualized sinuses and mastoid air cells are clear. CT T spine: No evidence of fracture or malalignment. CT L spine: No evidence of fracture or malalignment. Laboratory Results 12/21/17 22:50 Red Blood Count 4.61, Mean Corpuscular Volume 94.4, Mean Corpuscular Hemoglobin 34.7, Mean Corpuscular Hemoglobin Concent 36.8, Mean Platelet Volume 9.9, Neutrophils (%) (Auto) 34.8, Lymphocytes (%) (Auto) 50.3, Monocytes (%) (Auto) 10.0, Eosinophils (%) (Auto) 4.3, Basophils (%) (Auto) 0.5, Neutrophils # (Auto ) 3.08, Lymphocytes # (Auto) 4.44, Monocytes # (Auto) 0.88, Eosinophils # (Auto ) 0.38, Basophils # (Auto) 0.04 12/21/17 22:50 Test 5/20/18 22:50 White Blood Count 8.83 K/uL (4.8-10.8) Red Blood Count 4.61 M/uL (4.7-6.1) Hemoglobin 16.0 g/dL (14.0-18.0) Hematocrit 43.5 % (42-52) Mean Corpuscular Volume 94.4 fL (80-100) Mean Corpuscular Hemoglobin 34.7 pg (25-34) Mean Corpuscular Hemoglobin Concent 36.8 g/dl (32-36) Platelet Count 219 K/uL (130-400) Mean Platelet Volume 9.9 fL (7.4-10.4) Neutrophils (%) (Auto) 34.8 % Lymphocytes (%) (Auto) 50.3 % Monocytes (%) (Auto) 10.0 % Eosinophils (%) (Auto) 4.3 % Basophils (%) (Auto) 0.5 % Neutrophils # (Auto) 3.08 K/uL (1.4-6.5) Lymphocytes # (Auto) 4.44 K/uL (1.2-3.4) Monocytes # (Auto) 0.88 K/uL (0.11-0.59) Eosinophils # (Auto) 0.38 K/uL (0-0.5) Basophils # (Auto) 0.04 K/uL (0-0.2) RDW Standard Deviation 42.8 fL (36.4-46.3) RDW Coefficient of Variation 12.5 % (11.5-14.5) Immature Granulocyte % (Auto) 0.1 % Immature Granulocyte # (Auto) 0.01 K/uL (0.00-0.02) Red Blood Cell Morphology Unremarkable Prothrombin Time 9.7 SECONDS (9.0-12.0) Prothromb Time International Ratio 0.9 (0.9-1.1) Activated Partial Thromboplast Time 27.9 SECONDS (21.0-31.0) Partial Thromboplastin Ratio 1.1 Anion Gap 13.0 mmol/L (3-11) Est Creatinine Clear Calc Drug Dose 93.1 ml/min Estimated GFR () 121.3 Estimated GFR (Non- 104.6 BUN/Creatinine Ratio 8.9 (10-20) Calcium Level 8.1 mg/dl (8.5-10.1) Total Bilirubin 0.3 mg/dl (0.2-1) Direct Bilirubin 0.1 mg/dl (0-0.2) Aspartate Amino Transf (AST/SGOT) 86 U/L (15-37) Alanine Aminotransferase (ALT/SGPT) 103 U/L (12-78) Alkaline Phosphatase 74 U/L (45-117) Total Creatine Kinase 370 U/L (39-308) Total Protein 8.0 gm/dl (6.4-8.2) Albumin 3.8 gm/dl (3.4-5.0) Valproic Acid (Depakene) Level 6 mcg/ml (50-100) Laboratory results as reviewed by me. Medications Administered Medications (Trade) Dose Ordered Sig/Kenneth Route Start Time Stop Time Status Last Admin Dose Admin Morphine Sulfate (MoRPHine SULFATE INJ) 4 mg NOW STAT IV 12/21/17 22:41 12/21/17 22:47 DC 12/21/17 23:02 4 MG Ondansetron HCl (Zofran Inj) 4 mg NOW STAT IV 12/21/17 22:41 12/21/17 22:47 DC 12/21/17 23:02 4 MG Valproate Sodium 500 mg/Dextrose 55 ml @ 55 mls/hr NOW STAT IV 12/21/17 23:41 12/22/17 00:40 DC 12/22/17 00:01 55 MLS/HR Sodium Chloride 1,000 ml @ 999 mls/hr Q1H1M STAT IV 12/21/17 23:44 12/22/17 00:44 DC 12/22/17 00:01 999 MLS/HR ED Course 2234: The patient was evaluated in room B10. A complete history and physical exam was performed. 2241: Zofran Inj 4 mg IV, Morphine Sulfate 4 mg IV. 2341: Valproate Sodium 500 mg/Dextrose 55 ml @ 55 mls/hr IV. 2342: I reevaluated the patient. I discussed the test results with him. He assures me that he is taking his Depakote. He is moving his legs better now. The pain in his back is better now. 2344: Sodium Chloride 1000 ml @ 999 mls/hr IV. 0111: I reevaluated the patient. He is now moving his legs without difficulty. The numbness in his legs is gone. He also says that he does not drive. I discussed tonmaira's findings with him. He verbalized agreement of the treatment plan. He was discharged home. Medical Decision This is a 37-year-old male who presents with a seizure and numbness to his legs. Differential diagnosis includes medication noncompliance, breakthrough seizure, intracranial hemorrhage, metabolic derangement, cauda equina syndrome, pathologic vertebral fracture. I did perform a limited focused review of portions of the patient's old chart on the electronic medical record. The patient had an EEG in October of last year which was unremarkable. I did evaluate the patient as noted above. Patient had a breakthrough seizure earlier today. He states he is compliant with his medications. He states that he has difficulty moving his legs and feeling his legs. On examination he is able to move his legs but has pain when he moves them. This is worse on the right side. He does have diminished sensation to the lower extremities but no saddle anesthesia. IV access was established. I did treat the patient with IV morphine and Zofran for his back pain and headache. I did order and review the patient's blood work as noted in the electronic medical record. His Depakote level is 6. I did discuss this with him. He assures me that he has been taking his Depakote. I did treat him with 500 mg of IV Depakote. I did order a CT of the head and thoracic and lumbar spine. I did review the images myself as well as the radiology report as described above. There is no evidence of acute abnormality in his brain. No fractures or dislocations in his lumbar spine or thoracic spine. I did reassess patient several times. He now states that his numbness is completely resolved. He is able to move his legs without difficulty. Initially on exam he stated that he could not move his legs but when lifted upwards he was able to keep them elevated. He complains of a headache but otherwise feels much better. He was advised of his test results and told to take his medications as prescribed and to follow-up with his neurologist. He was discharged in good condition. Medication Reconcilliation Current Medication List: was personally reviewed by me Blood Pressure Screening Patient's blood pressure: Elevated blood pressure Blood pressure disposition: Referred to PCP Impression Primary Impression: Seizure secondary to subtherapeutic anticonvulsant medication Additional Impression: Lower extremity numbness Scribe Attestation The scribe's documentation has been prepared under my direct and personally reviewed by me in its entirety. I confirm that the note above accurately reflects all work, treatment, procedures, and medical decision making performed by me. Departure Information Dispostion Home / Self-Care Referrals Radha Tadeo M.D. (MEDICAL) (PCP) Forms HOME CARE DOCUMENTATION FORM, IMPORTANT VISIT INFORMATION Patient Instructions ED Seizure Recurrent, My [facility] Additional Instructions You have been examined and treated today on an emergency basis only. This is not a substitute for, or an effort to provide, complete comprehensive medical care. It is impossible to recognize and treat all injuries or illnesses in a single emergency department visit. It is therefore important that you follow up closely with your physician and neurologist. Call as soon as possible for an appointment. Return for worsening symptoms or if you develop fever, vomiting, or any other concerning symptoms. Take your medications as prescribed. Do not engage in any activity that may put yourself or others at risk should you have another seizure. This includes, but is not limited to, driving, taking a bath, climbing heights, swimming or operating heavy machinery Problem Qualifiers
--- NOTE | 2017-12-22 07:15 | DIAGNOSTIC IMAGING REPORT ---
THORACIC SPINE CT CT DOSE: 1249.48 mGy.cm HISTORY: Back pain. TECHNIQUE: Multiaxial CT images of the thoracic spine were performed and reformatted in the sagittal and coronal plane without the use of contrast. A dose lowering technique was utilized adhering to the principles of ALARA. COMPARISON: Thoracic spine CT 09/19/2016. FINDINGS: No acute fractures. No subluxation. Paraspinal soft tissues are unremarkable. Hepatic steatosis. No change in the masslike and cavity within a few of the upper thoracic spine vertebral bodies. Disc spaces are preserved. IMPRESSION: No acute fractures within the thoracic spine. Electronically signed by: Neri More M.D. 12/22/2017 7:13 AM Dictated Date/Time: 12/22/2017 7:10 AM
--- NOTE | 2017-12-22 08:12 | DIAGNOSTIC IMAGING REPORT ---
CT SCAN OF THE LUMBAR SPINE WITHOUT IV CONTRAST CLINICAL HISTORY: Seizure. Difficulty walking. COMPARISON STUDY: CT scan of the lumbar spine dated 09/19/2016. TECHNIQUE: CT scan of the lumbar spine is performed from the lower thoracic spine to the sacrum. Images reviewed in the axial, sagittal, and coronal planes. IV contrast was not administered for this examination. A dose lowering technique was utilized adhering to the principles of ALARA. FINDINGS: The skeletal structures are well mineralized. There is no evidence of fracture or malalignment involving the lumbar spine. Vertebral body height and alignment are maintained. The transverse and spinous processes are intact. No lytic or blastic lesion is seen. There is no spondylolysis. Mild facet arthropathy and bony overgrowth is seen at the L5-S1 level. The intervertebral disc spaces are preserved. Small posterior disc bulges are noted at L4-L5 and L5-S1. There is no evidence of large disc herniation or high-grade central canal stenosis. The visualized sacrum and bony pelvis appear intact. The paraspinous soft tissues are within normal limits. The imaged retroperitoneal structures are normal as visualized but incompletely evaluated. IMPRESSION: There is no evidence of fracture or malalignment involving the lumbar spine. Dictated: 12/22/2017 7:29 AM Transcribed: 12/22/2017 8:12 AM [email or web address] Electronically signed by: Jay Springer M.D. 12/22/2017 8:50 AM Dictated Date/Time: 12/22/2017 7:29 AM
--- NOTE | 2017-12-22 09:39 | DIAGNOSTIC IMAGING REPORT ---
HEAD WITHOUT CONTRAST (CT) CLINICAL HISTORY: 37 years-old Male presenting with eval for bleed, seizure activity, difficulty walking. TECHNIQUE: Multidetector CT imaging of the head was performed without the use of intravenous contrast. IV contrast: None. A dose lowering technique was used consistent with the principles of ALARA (as low as reasonably achievable). COMPARISON: 09/19/2016. CT DOSE (mGy.cm): The estimated cumulative dose is 614.27 mGy.cm. FINDINGS: Fashion Illustrator topogram: Unremarkable. Ventricles and sulci normal in size. Brain parenchyma normal in appearance with preserved steven-white differentiation. No mass effect or midline shift. No hemorrhage or acute territorial infarct. No extra-axial fluid collection. Paranasal sinuses and mastoid air cells clear. Calvarium intact. IMPRESSION: 1. No acute intracranial abnormality. Electronically signed by: Alexandre Ballard M.D. 12/22/2017 9:38 AM Dictated Date/Time: 12/22/2017 7:46 AM
== END 2017-12-22 01:30 | disposition home or self-care (01) ==
LOC: C.EDB 22:12
DX: R56.9 Unspecified convulsions (principal); R79.89 Other specified abnormal findings of blood chemistry; R26.2 Difficulty in walking, not elsewhere classified; F17.210 Nicotine dependence, cigarettes, uncomplicated; Z79.899 Other long term (current) drug therapy